=== PATIENT | female | born 1965 | race Caucasian/White ===

== ENCOUNTER 2016-11-14 09:10 | Outpatient (RCR) | payer OTHER | END 2016-12-01 10:23 | disposition home or self-care (01) | LOC: WSOH 09:10 | DX: M25.512 Pain in left shoulder (principal) ==

== ENCOUNTER 2017-05-07 09:59 | Outpatient (RCR) | payer OTHER | END 2017-05-18 13:49 | disposition still patient (30) | LOC: WSOH 09:59 | DX: M79.641 Pain in right hand (principal); R22.31 Localized swelling, mass and lump, right upper limb; X50.3XXA Overexertion from repetitive movements, initial encounter; Y99.0 Civilian activity done for income or pay ==